=== PATIENT | female | born 1965 | race Caucasian/White ===

== ENCOUNTER → 2017-03-10 | Outpatient (REF) ==
[~2017-03-10] MED LIST: BUSP15TA69 PO; CEPH500T7 PO; ERYT-108 PO; ESC10 PO; GLUC100026 PO; LEVO100T95 PO; MULTIVIT PO; OMEG-11 PO; TRAZ150T61 PO
[2017-03-10 08:37] LABS: LDL CHOLESTEROL 145 mg/dl
== END ==
DX: Z02.9 Encounter for administrative examinations, unspecified (principal)

== ENCOUNTER → 2017-08-25 | Outpatient (CLI) | payer OTHER ==
--- NOTE | 2017-08-28 17:24 | RADIOLOGY IMAGING REPORT ---
FACILITY: [facility] PATIENT NAME: STACI REYES : [id number] MR: [id number] V: [id number] EXAM DATE: ORDERING PHYSICIAN: RYANNE BERKOWITZ TECHNOLOGIST: Saima Das PROCEDURE:BILATERAL DIGITAL SCREENING MAMMOGRAM WITH CAD ASSISTED INTERPRETATION & 3D TOMOSYNTHESIS COMPARISON:Prior mammograms 06/27/16, 03/31/14, 03/26/13, 03/23/12. INDICATIONS:SCREENING FINDINGS: Moderately heterogeneous fibroglandular tissue is seen throughout the breasts. The parenchymal pattern has remained stable allowing for difference in mammographic technique & patient positioning. There is no evidence of malignant appearing mass, malignant appearing calcifications or other secondary sign of malignancy in either breast. DIAGNOSTIC CATEGORY 1--NEGATIVE. RECOMMENDATIONS: ROUTINE MAMMOGRAM AND CLINICAL EVALUATION. IMPRESSION: BIRADS 1: Negative. No significant abnormality is seen. Dictated by: Chen Ford M.D. on 08/28/2017 at 15:17 Transcribed by: [email or web address] on 08/28/2017 at 15:32 Approved by: Chen Ford M.D. on 08/28/2017 at 17:24 [facility]
== END ==
LOC: MAMO 03:00
PROVIDERS: ATTEND Nurse Practitioner Family
DX: Z12.31 Encounter for screening mammogram for malignant neoplasm of breast (principal)
CPT/HCPCS: 77063; 77067

== ENCOUNTER → 2018-05-15 | Outpatient (REF) ==
[2018-05-15 09:45] LABS: LDL CHOLESTEROL 115 mg/dl
== END ==
DX: Z02.9 Encounter for administrative examinations, unspecified (principal)